=== PATIENT | female | born 1980 | race Caucasian/White ===

== ENCOUNTER → 2020-02-08 | Outpatient (REF) | payer OTHER ==
[~2020-02-08] MED LIST: CELEXA PO; DIPH50CA PO; MOTRIN PO; NICO7DIS23 EXT; PRED10TA2 PO; TRAZODONE PO; ZANTTAB PO
[2020-02-08 12:54] LABS: ALBUMIN 3.9 GM/DL (3.2-5.2); ALT/SGPT 29 U/L (12-78); BILIRUBIN,TOTAL 0.2 MG/DL (0.2-1.0); BLOOD UREA NITROGEN 9 MG/DL (7-18); CARBON DIOXIDE LEVEL 25 MEQ/L (21-32); CHLORIDE LEVEL 103 MEQ/L (98-107); CHOLESTEROL LEVEL 280 MG/DL (<200); CHOLESTEROL RISK RATIO 12.727 (<5); CREATININE FOR GFR 0.59 MG/DL (0.55-1.30); GLOMERULAR FILTRATION RATE > 60.0 (>58); GLUCOSE, FASTING 269 MG/DL (70-100); HDL CHOLESTEROL 22 MG/DL (>40); NON-HDL-C 258 MG/DL; POTASSIUM SERUM 4.3 MEQ/L (3.5-5.1); SODIUM LEVEL 135 MEQ/L (136-145); TOTAL PROTEIN 7.3 GM/DL (6.4-8.2); TRIGLYCERIDES LEVEL 421 MG/DL (<150)
== END ==
LOC: M SFHCPLAZ 09:12
PROVIDERS: ATTEND Family Medicine
DX: R73.9 Hyperglycemia, unspecified (principal)

== ENCOUNTER → 2020-02-15 | Outpatient (REF) | payer OTHER ==
[2020-02-15 19:11] LABS: CREATININE, URINE 28.4 MG/DL; MAU/CREAT RATIO 59.8 MCG/MG (0.0-30.0)
== END ==
LOC: M SFHCLERA 15:31
PROVIDERS: ATTEND Family Medicine
DX: E11.9 Type 2 diabetes mellitus without complications (principal)